=== PATIENT | female | born 1995 | race American Indian/Alaskan Native ===

== ENCOUNTER 2019-02-20 00:26 | Observation (INO) | payer BC ==
[2019-02-20 00:58] LABS: Basophils % (Auto) 0.4 % (0.0-1.8); Eosinophils # (Auto) 0.2 K/mm3 (0.0-0.4); Eosinophils % (Auto) 1.8 % (0.0-4.3); Hematocrit 36.1 % (30.3-42.9); Lymphocytes # (Auto) 3.9 K/mm3 (1.2-5.4); Lymphocytes % (Auto) 37.8 % (13.4-35.0); Mean Corpuscular HGB Conc 33 % (30-34); Mean Corpuscular Volume 88 fl (79-97); Monocytes # (Auto) 0.8 K/mm3 (0.0-0.8); Monocytes % (Auto) 7.6 % (0.0-7.3); Platelet Count 321 K/mm3 (140-440); Red Blood Count 4.09 M/mm3 (3.65-5.03); Red Cell Distribution Width 14.6 % (13.2-15.2)
[2019-02-20 01:15] LABS: BUN/Creatinine Ratio 17; Blood Urea Nitrogen 17 mg/dL (7-17); Calcium 9.2 mg/dL (8.4-10.2); Hemolysis Index 3
--- NOTE | 2019-02-20 01:24 | Emergency Department Report ---
ED General Adult HPI - General Chief complaint: GI Bleed Stated complaint: ABDOMINAL PAIN/BLOOD IN STOOL/NAUSEA Time Seen by Provider: 02/20/19 01:21 Source: patient, family Mode of arrival: Ambulatory Limitations: No Limitations - History of Present Illness Initial comments: 23-year-old female presents with complaint of abdominal pain and blood in his s tool. Patient states she had abdominal pain that worsened since yesterday morning. Patient states that at 11 PM she had bloody stool and this presented to emergency department. Patient denies any melena. Patient denies any hematemesis. Patient denies any prior occurrences of GI bleed. Patient denies any lightheadedness or chest pain or shortness of breath. Patient states she had a bowel movement and after the bowel movement she noticed the toilet was full of blood and stool was covered in blood. Patient denies any melena or patient has any blood thinners. - Related Data Allergies Allergy/AdvReac Type Severity Reaction Status Date / Time naproxen [From Naprosyn] Allergy Nausea Unverified 04/24/16 12:27 ED Review of Systems ROS: Stated complaint: ABDOMINAL PAIN/BLOOD IN STOOL/NAUSEA Other details as noted in HPI Constitutional: denies: chills, fever Eyes: denies: eye pain, eye discharge, vision change ENT: denies: ear pain, throat pain Respiratory: denies: cough, shortness of breath, wheezing Cardiovascular: denies: chest pain, palpitations Endocrine: no symptoms reported Gastrointestinal: abdominal pain, hematochezia Genitourinary: denies: urgency, dysuria, discharge Musculoskeletal: denies: back pain, joint swelling, arthralgia Skin: denies: rash, lesions Neurological: denies: headache, weakness, paresthesias Psychiatric: denies: anxiety, depression Hematological/Lymphatic: denies: easy bleeding, easy bruising ED Past Medical Hx - Past Medical History Previous Medical History?: No - Surgical History Past Surgical History?: No - Social History Smoking Status: Never Smoker Substance Use Type: None ED Physical Exam - General Limitations: No Limitations General appearance: alert, in no apparent distress, other (mildly uncomfortable) - Head Head exam: Present: atraumatic, normocephalic - Eye Eye exam: Present: normal appearance - ENT ENT exam: Present: mucous membranes moist - Neck Neck exam: Present: normal inspection - Respiratory Respiratory exam: Present: normal lung sounds bilaterally. Absent: respiratory distress - Cardiovascular Cardiovascular Exam: Present: regular rate, normal rhythm. Absent: systolic murmur, diastolic murmur, rubs, gallop - GI/Abdominal GI/Abdominal exam: Present: soft, tenderness (mild tenderness in LLQ), normal bowel sounds - Rectal Rectal exam: Present: heme (+) stool (No external hemorrhoids present; Bright red blood noted on rectal examination) - Extremities Exam Extremities exam: Present: normal inspection - Back Exam Back exam: Present: normal inspection - Neurological Exam Neurological exam: Present: alert, oriented X3 - Psychiatric Psychiatric exam: Present: normal affect, normal mood - Skin Skin exam: Present: warm, dry, intact, normal color. Absent: rash ED Course Vital Signs 02/20/19 02/20/19 00:32 01:22 Temperature 99.4 F 99 F Pulse Rate 85 88 Respiratory 16 16 Rate Blood Pressure 150/79 Blood Pressure 131/51 [Left] O2 Sat by Pulse 99 99 Oximetry ED Medical Decision Making - Lab Data Result diagrams: 02/20/19 00:38 02/20/19 00:38 - Medical Decision Making Patient has a presence of bright red blood per rectum on physical exam. Patient has a hemoglobin which is stable but only had the one recurrence of the bright red blood. Patient be admitted to the hospitalist service with GI consultation for continued management and treatment. Patient also received protonic therapy while here in the emergency department. - Differential Diagnosis GI bleed; anemia; Crohns disease; Critical care attestation.: If time is entered above; I have spent that time in minutes in the direct care of this critically ill patient, excluding procedure time. ED Disposition Clinical Impression: GI bleed Disposition: OP ADMIT IP TO THIS HOSP Is pt being admited?: Yes Does the pt Need Aspirin: No Condition: Stable Forms: Accompanied Note Time of Disposition: 02:33
[2019-02-20 01:30] LABS: Bacteria,Urine 2+ /HPF (Negative); Bilirubin,Urine NEG (Negative); Blood,Urine NEG (Negative); Color,Urine Yellow (Yellow); Mucus,Urine FEW /HPF; Protein,Urine <15 mg/dL mg/dL (Negative); Urobilinogen,Urine < 2.0 mg/dL (<2.0)
[2019-02-20 01:53] LABS: HCG Qualitative,Urine Negative (Negative)
[2019-02-20] MEDS ORDERED: PROTONIX IV ONE (02:28)
[2019-02-20] MEDS ORDERED: NACL 0.9% 1000 ML 1,000 ML IV ONE ×2 (02:29→03:01)
--- NOTE | 2019-02-20 02:43 | Cat Scan Report ---
CT ABDOMEN AND PELVIS WITHOUT CONTRAST HISTORY: Unspecified abdominal pain. COMPARISON: No relevant prior imaging study available. TECHNIQUE: Axial, coronal and sagittal CT imaging of the abdomen and pelvis was performed without co ntrast. Lack of intravenous contrast limits evaluation of the vascular and solid organs. All CT sca ns at this location are performed using CT dose reduction for ALARA by means of automated exposure co ntrol. FINDINGS: LOWER CHEST: No significant abnormality. LIVER: No significant abnormality. BILIARY: No significant abnormality. PANCREAS: No significant abnormality. SPLEEN: No significant abnormality. ADRENALS: No significant abnormality. KIDNEYS AND URETERS: No significant abnormality. GI TRACT: No significant abnormality of the stomach, small bowel or colon. Unremarkable appendix. PERITONEUM: No free fluid. No free air. No fluid collection. LYMPH NODES: No significant adenopathy. VASCULATURE: No significant abnormality. URINARY BLADDER: No significant abnormality. REPRODUCTIVE ORGANS: A probable left ovarian cyst measures 4.1 x 3.9 cm on image 141 of series 3. No additional significant abnormality. ADDITIONAL FINDINGS: None. SKELETAL SYSTEM: No significant abnormality. IMPRESSION: 1. 4.1 x 3.9 cm probable left ovarian cyst. No further imaging is indicated in a patient of this age. 2. No additional acute findings. Signer Name: Curtis Schuler MD Signed: 02/20/2019 2:38 AM Workstation Name: [id number]
[2019-02-20] MEDS ORDERED: ZOFRAN IV PRN (03:02)
[2019-02-20] MEDS ORDERED: TYLENOL PR PRN (03:04)
[2019-02-20] MEDS ORDERED: MORPHINE IV PRN (03:04)
--- NOTE | 2019-02-20 06:11 | History and Physical Report ---
CHIEF COMPLAINT: Bright red blood in stool. Other complaint includes abdominal pain. HISTORY OF PRESENT ILLNESS: The patient is a 23-year-old female who says she started having abdominal pain on 02/19/2019 and then later on noticed bright red blood in a stool. The patient states that her abdominal pain got worse later on in the evening before she had the bloody stool. There is history of nausea, but no vomiting. There is no history of prior black stool and there is also no history of administration of nonsteroidal antiinflammatory agent or alcohol. The patient denies history of dizziness, shortness of breath or chest pain. PAST MEDICAL HISTORY: Unremarkable. PAST SURGICAL HISTORY: Unremarkable. FAMILY HISTORY: Noncontributory. SOCIAL HISTORY: The patient does not smoke, does not drink alcohol, and does not use illicit drug. MEDICATIONS: The patient takes occasional hqag-rju-[id number] medications. ALLERGIES: THE PATIENT IS ALLERGIC TO NAPROXEN. REVIEW OF SYSTEMS: CONSTITUTIONAL: There is no fever, no chills, no diaphoresis. HEENT: There is no headache or sore throat. CARDIOVASCULAR: There is no chest pain or orthopnea. RESPIRATORY SYSTEM: There is no shortness of breath or cough. GASTROINTESTINAL SYSTEM: Abdominal pain present, bright red blood in the stool present. Nausea present. No vomiting, no diarrhea or constipation. NEUROLOGICAL SYSTEM: There is no numbness, no dizziness, no altered mental status. MUSCULOSKELETAL SYSTEM: There is no joint pain or swelling. DERMATOLOGICAL SYSTEM: There is no skin rash or itching. GENITOURINARY SYSTEM: There is no dysuria, hematuria, or flank pain. Rest of system review is normal. PHYSICAL EXAMINATION: GENERAL: At the time of exam, the patient was found to be alert, oriented x 3 and not in acute distress. VITAL SIGNS: At the initial time of presentation show temperature of 99.4 degrees Fahrenheit, pulse of 85, respirations 16, blood pressure 150/79, O2 sat of 99% on room air. The patient's repeat blood pressure showed normal blood pressure subsequently. HEENT: Shows pupils to be equal, round, reactive to light and accommodating. Extraocular muscles are intact. NECK: Supple with no JVD or carotid bruit. CARDIOVASCULAR SYSTEM: Showed normal first and second heart sounds with no gallops or murmurs. RESPIRATORY SYSTEM: Show good air entry on both sides of the lungs with no abnormal breath sounds. GASTROINTESTINAL SYSTEM: Show abdomen to be full, soft, nontender with no organomegaly or rigidity. NEUROLOGICAL: Shows no focal deficit. MUSCULOSKELETAL SYSTEM: Show no joint swelling or tenderness. DERMATOLOGICAL: No skin rash. GENITOURINARY SYSTEM: Showing no costovertebral angle tenderness. PERTINENT LABORATORY AND IMAGING STUDIES: The patient has CT of the abdomen and pelvis done without contrast that shows ____ x 3.9 cm probable left ovarian cyst with no other acute finding. Lab results: The patient's CBC showed normal white count, normal hemoglobin and normal hematocrit with CBC differential showing high lymphocyte count of 37.8% and high monocyte count of 7.6% and the patient's chemistry was unremarkable. Urinalysis show small urine leukocyte esterase with high urine WBC of 8 with 2+ bacteria, but high urine epithelial cells of 26 and normal urine RBC. DIAGNOSES: 1. Gastrointestinal bleed. 2. Urinary tract infection. PLAN OF CARE: 1. The patient will be admitted to telemetry. 2. The patient will have hemoglobin and hematocrit checked every 6 hours x 2 more levels. 3. The patient will continue Gastroenterology consult with Dr. Zack Hernandez of the [facility] requested by the Emergency Room physician. 4. The patient will remain n.p.o. until seen by the container washer machine. 5. The patient will be on IV normal saline running at 100 mL an hour and will be on IV ceftriaxone 1 gram daily for treatment of UTI. 6. The patient will be on IV morphine 2 mg every 4 hours as needed for pain and IV Zofran 4 mg every 8 hours as needed for nausea and vomiting. 7. The patient will be on IV Protonix 40 mg twice daily. 8. The patient will be on Tylenol 650 mg rectal every 4 hours as needed for fever and headache. JOB# [id number] OCN/NTS
[2019-02-20 06:19] LABS: Hematocrit 34.9 % (30.3-42.9); Hemoglobin 11.5 gm/dl (10.1-14.3)
[2019-02-20] MEDS ORDERED: PROTONIX IV SCH (10:00)
[2019-02-20] MEDS ORDERED: ROCEPHIN/NS 1 GM/50 ML 1 GM/50 ML BAG IV SCH (10:00)
--- NOTE | 2019-02-20 10:13 | Discharge Summary ---
Providers - Providers Date of Admission: 02/20/19 04:09 Date of discharge: 02/20/19 Attending physician: MING DONAHUE MD 02/20/19 02:29 Consult to Physician [CONS] Routine Comment: Consulting Provider: FREDY JIMENEZ Physician Instructions: Reason For Exam: GI bleed Primary care physician: MARIAA PHAM Hospitalization Reason for admission: GI bleed, UTI Condition: Stable Hospital course: 23-year-old female presents with complaint of abdominal pain and blood in his stool. Patient states she had abdominal pain that worsened since yesterday morning. Patient states that at 11 PM she had bloody stool and this presented to emergency department. Patient denies any melena. Patient denies any he matemesis. Patient denies any prior occurrences of GI bleed. Patient denies any lightheadedness or chest pain or shortness of breath. Patient states she had a bowel movement and after the bowel movement she noticed the toilet was full of blood and stool was covered in blood. Patient denies any melena or patient has any blood thinners. Urinalysis showed UTI and patient treated with bactrim. Patient was seen by GI and cleared her for DC. CT abdomen and pelvis is normal. H/H stable. patient is hemodynamically stable. No further w/u is needed. Patient is feeling well. Disposition: DC-01 TO HOME OR SELFCARE Time spent for discharge: 25 minutes - Discharge Diagnoses (1) UTI (urinary tract infection) Status: Acute (2) GI bleed Status: Acute Core Measure Documentation - Palliative Care Palliative Care/ Comfort Measures: Not Applicable - Core Measures Any of the following diagnoses?: none Exam - Physical Exam Narrative exam: Not in cardiopulmonary distress. The patient is obese. Vital signs as documented. Head exam is unremarkable. No scleral icterus . Neck is without jugular venous distension, thyromegaly, or carotid bruits. Lungs are clear to auscultation. Cardiac exam reveals regular rate and Rhythm. First and second heart sounds n ormal. No murmurs, rubs or gallops. Abdominal exam reveals normal bowel sounds, no masses, no organomegaly and no aortic enlargement. Extremities are nonedematous and both femoral and pedal pulses are normal. 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 No focal weakness. - Constitutional Vitals: Temp Pulse Resp BP Pulse Ox 99 F 86 16 110/56 96 02/20/19 01:22 02/20/19 08:00 02/20/19 08:08 02/20/19 08:00 02/20/19 08:00 Plan Activity: no restrictions Weight Bearing Status: Full Weight Bearing Diet: regular Follow up with: MARIAA PHAM MD [Primary Care Provider] - 7 Days Forms: Accompanied Note Prescriptions: Sulfamethoxazole/Trimethoprim [Bactrim DS TAB] 1 each PO BID #6 tablet
[2019-02-20 11:20] VITALS: BP 110/58
[2019-02-20 12:35] LABS: Hematocrit 34.7 % (30.3-42.9); Hemoglobin 11.6 gm/dl (10.1-14.3)
--- NOTE | 2019-02-21 02:52 | Consultation ---
REFERRING PHYSICIAN: Dr. Bob Leroy INDICATION: 1. Rectal bleeding. 2. Abdominal pain. HISTORY OF PRESENT ILLNESS: The patient is a 23-year-old black female who presents for abdominal pain and rectal bleeding. The patient reports her usual state of health until the day of admission. She reports she was having some abdominal cramping earlier in the day. She reports no recent diet or medication changes. The patient reports she had a bloody bowel movement and came to the Emergency Room. She reports some bright red with clots. She reports she has never had this in the past. She reports no nausea or vomiting. Denies any weight loss. Denies any specific complains. The patient was seen in the Emergency Room and subsequently admitted and GI consulted. She reports since that time, she has done well and denies any other further rectal bleeding. PAST MEDICAL HISTORY: Negative. ALLERGIES: NAPROSYN. MEDICATIONS: Reviewed and updated in chart. SOCIAL HISTORY: Denies alcohol, tobacco or drug abuse. FAMILY HISTORY: Negative for colon cancer, IBD, or liver disease. REVIEW OF SYSTEMS: GENERAL: Reports mild weakness. HEENT: No visual complaints or tinnitus. PULMONARY: No shortness of breath. No cough. No chest pain. GASTROINTESTINAL: Reports rectal bleeding, now resolved. All points of a 13-point review of systems otherwise negative. PHYSICAL EXAMINATION: VITAL SIGNS: Temperature of 98.7, pulse 86, respirations 18, blood pressure 110/60. GENERAL: Fairly nourished female in no acute distress. HEENT: Pupils are round and reactive. PULMONARY: Clear to auscultation bilaterally. CARDIOVASCULAR: Regular rhythm. Normal S1, S2. ABDOMEN: Positive bowel sounds, soft. SKIN: No obvious rashes. LABORATORY DATA: Pertinent for white count of 10.2, hemoglobin and hematocrit of 12 and 36.1, platelet count 232. Chem-7 is within normal limits. LFTs are within normal limits. CT scan is negative. ASSESSMENT AND PLAN: A 23-year-old black female presents with a single bout of rectal bleeding, now stable without a GI problems or complaints. Possible hemorrhoids versus other pathology. At this time, she is stable and tolerating p.o. Management is noted below. PLAN: 1. Follow hematocrit and transfuse as needed. 2. Advance diet. 3. Okay to discharge from GI standpoint with further workup as an outpatient. 4. We will sign off, call if needed. JOB# [id number] CAB/NTS
== END 2019-02-20 12:17 | disposition home or self-care (01) ==
LOC: ED 00:26 → 3A 04:09 → INTOOBSV 04:09 → 3A 08:23
PROVIDERS: ADMIT Internal Medicine; ATTEND Internal Medicine
DX: K92.2 Gastrointestinal hemorrhage, unspecified (principal); N39.0 Urinary tract infection, site not specified
CPT/HCPCS: 36415; 74176; 80048; 81001; 81025; 85014; 85018; 85025; 96374; 99284; C9113; G0378; J0696; J7030; 96361

== ENCOUNTER 2019-02-26 13:36 | Outpatient (CLI) | payer BC ==
--- NOTE | 2019-02-26 14:27 | XRay Report ---
Left knee 3 views 1400 INDICATION: Pain for one day after trauma No fractures or dislocations are seen. Right foot 3 views 1359 No fractures or dislocation are seen. Borderline pes planus is noted. Mild inferior calcaneal spurrin g is seen. Signer Name: Cristian Potts MD Signed: 02/26/2019 2:23 PM Workstation Name: [id number]
== END 2019-02-26 13:37 | disposition home or self-care (01) ==
LOC: XRAY 13:36
PROVIDERS: ATTEND Family Medicine Adult Medicine
DX: M77.31 Calcaneal spur, right foot (principal); M77.32 Calcaneal spur, left foot